=== PATIENT | female | born 1950 | race Caucasian/White ===

== ENCOUNTER 2019-05-29 09:40 | Emergency (ER) | payer OTHER ==
[~2019-05-29] VITALS: Ht 165.1 cm; Wt 61.2 kg
[~2019-05-29 09:40] MED LIST: CLON1TAB PO; EZET1TAB24 PO; LORA10TA60 PO; METO25TA14 PO; OMEP20EC9 PO; PANT20EC12 PO; TRAM50TA1 PO
--- NOTE | 2019-05-29 09:51 | NUR ---
PT AMBULATED TO BED 11, RN EVALUATING AT BEDSIDE.
[2019-05-29 09:55] VITALS: BP 130/71
--- NOTE | 2019-05-29 10:00 | NUR ---
PT PRESENTS TO ED REQUESTING REFILL OF HOME MED METOPROLOL 25 MG PO BID FOR HTN. DENIES PAIN OR DISCOMFORT AT THIS TIME. AMB EVEN STEADY GAIT. VSS. HX- HTN RX- METOPROLOL
--- NOTE | 2019-05-29 10:25 | NUR ---
Patient discharged with v/s stable. Written and verbal after care instructions given and explained. Patient alert, oriented and verbalized understanding of instructions. Ambulatory with steady gait. All questions addressed prior to discharge BY DR. MENDEZ AND PT D/C BY DR. MENDEZ. ID band removed. Patient advised to follow up with PMD. Rx of METOPROLOL given. Patient educated on indication of medication including possible reaction and side effects. Opportunity to ask questions provided and answered.
== END 2019-05-29 10:25 | disposition home or self-care (01) ==
LOC: MED 09:40
DX: Z76.0 Encounter for issue of repeat prescription (principal); J45.909 Unspecified asthma, uncomplicated; E11.9 Type 2 diabetes mellitus without complications; I10 Essential (primary) hypertension; F03.90 Unspecified dementia, unspecified severity, without behavioral disturbance, psychotic disturbance, mood disturbance, and anxiety; Z79.899 Other long term (current) drug therapy
CPT/HCPCS: 99283

== ENCOUNTER 2019-06-04 10:35 | Emergency (ER) | payer OTHER | END 2019-06-04 12:12 | disposition home or self-care (01) | LOC: MED 10:35 | DX: R00.2 Palpitations (principal); F41.9 Anxiety disorder, unspecified; I10 Essential (primary) hypertension; Z90.49 Acquired absence of other specified parts of digestive tract | CPT/HCPCS: 99283 ==

== ENCOUNTER 2019-06-13 18:49 | Emergency (ER) | payer OTHER ==
[~2019-06-13] VITALS: Ht 165.1 cm; Wt 68.0 kg
[2019-06-13 19:03] VITALS: BP 185/92
--- NOTE | 2019-06-13 19:22 | NUR ---
68 Y/O FEMALE BIBA FROM HOME. PT PRESENTS TO ED, C/O CHOKING APPROXIMATELY 1 HOUR AGO. PT WAS AT HOME EATING BREAD AND STARTED CHOKING. PT LUNG SOUNDS BILAT CLEAR. NO SOB/DIFFICULTY BREATHING NOTED. DENIES ANY CHEST PAIN. PT STATES BEING UNABLE TO SWALLOW SALIVA. PT VSS. ERMD AWARE. WILL CONTINUE TO MONITOR.
--- NOTE | 2019-06-13 19:32 | NUR ---
PATIENT LEFT WITHOUT BEING SEEN BY DR. MENDEZ. NO FURTHER CARE PROVIDED FOR PATIENT.
--- NOTE | 2019-06-13 19:33 | NUR ---
PT LEFT WITHOUT BEING SEEN.
--- NOTE | 2019-06-13 19:45 | NUR ---
PT RETURNED FROM LOBBY. REQUESTED TO BE SEEN BY DOCTOR AGAIN.
--- NOTE | 2019-06-13 20:10 | NUR ---
PT TAKEN TO CT
[2019-06-13] MEDS ORDERED: NITROGLYCERIN 0.4 MG TAB SL ONE (22:00)
[2019-06-13] MEDS ORDERED: GLUCAGON 1 MG VIAL IVP ONE (22:00)
[2019-06-13 22:35] VITALS: BP 125/58
[2019-06-13] MEDS ORDERED: GLUCAGON 1 MG VIAL ONE (22:58)
--- NOTE | 2019-06-13 23:18 | NUR ---
PT DISCHARGED BY DR MENDEZ. PAPERWORK PROVIDED. EDUCATED PT REGARDING D/C DIAGNOSIS AND INSTRUCTIONS. TOLD PT TO FOLLOW UP WITH PCP AND WHEN TO RETURN TO ED. PT AT STABLE CONDITION. ALL QUESTIONS ANSWERED.
== END 2019-06-13 23:18 | disposition home or self-care (01) ==
LOC: MED 18:49
DX: T18.198A Other foreign object in esophagus causing other injury, initial encounter (principal); J45.909 Unspecified asthma, uncomplicated; E11.9 Type 2 diabetes mellitus without complications; I10 Essential (primary) hypertension; F03.90 Unspecified dementia, unspecified severity, without behavioral disturbance, psychotic disturbance, mood disturbance, and anxiety; Z79.899 Other long term (current) drug therapy; Z79.891 Long term (current) use of opiate analgesic; Z91.09 Other allergy status, other than to drugs and biological substances; Z91.048 Other nonmedicinal substance allergy status; Y92.89 Other specified places as the place of occurrence of the external cause
CPT/HCPCS: 70490; 96374; 99291; J1610; 99284

== ENCOUNTER 2019-08-10 20:55 | Emergency (ER) | payer OTHER ==
[~2019-08-10] VITALS: Ht 167.6 cm; Wt 68.0 kg
[2019-08-10 20:55] VITALS: BP 178/50
--- NOTE | 2019-08-10 21:00 | NUR ---
PT BIBA TO BED 04.
--- NOTE | 2019-08-10 21:25 | NUR ---
68 Y/O F PRESENTS TO ED WITH C/O SOB AND CHEST PAIN . [place]ET[place]ESE SPEAKING ONLY, DAUGHTER AT BEDSIDE TO TRANSLATE AND GIVE REPORT. [employer]. PT's DAUGHTER REPORTS THAT PATIENT TOOK MEDICATIONS FOR ANXIETY AND MEDICATIONS FOR BP-METROPOLOL. CONNECTED TO FITTING ROOM OPERATOR, SINUS AMANDA ON MONITOR, HR-48, BP-158/56, 98% ON ROOM AIR, RR-14, LUNG SOUNDS CLEAR. SIDERAILS UPx3, BED LOCKED AND IN LOWEST POSITION, WILL CARRY OUT ORDERS.
[2019-08-10 22:47] LABS: BASOPHILS % (AUTO) 0.7 % (0.0-2.0); EOSINOPHILS # (AUTO) 0.1 K/uL (0-0.4); EOSINOPHILS % (AUTO) 2.5 % (0.0-4.0); HEMATOCRIT 42.3 % (36-48); HEMOGLOBIN 14.1 g/dL (12.0-16.0); LYMPHOCYTES % (AUTO) 36.6 % (20.5-51.1); MEAN CORPUSCULAR HEMOGLOBIN 32 pg (27-31); MEAN CORPUSCULAR HGB CONC 34 g/dL (33-37); MEAN CORPUSCULAR VOLUME 96.5 fL (80-94); MONOCYTES # (AUTO) 0.4 K/uL (0.8-1.0); MONOCYTES % (AUTO) 6.9 % (1.7-9.3); NEUTROPHILS # (AUTO) 2.9 K/uL (1.8-7.7); NEUTROPHILS % (AUTO) 53.3 % (42.2-75.2); PLATELET COUNT (AUTO) 180 K/uL (140-450); RED BLOOD CELL COUNT(AUTO) 4.38 MIL/uL (4.20-5.40); RED CELL DISTRIBUTION WIDTH 13.5 % (11.6-13.7); WHITE BLOOD COUNT (AUTO) 5.3 K/uL (4.8-10.8)
--- NOTE | 2019-08-10 23:10 | NUR ---
DAUGHTER REQUESTING TO CALL FOR PATIENT UPDATE OR IF GETTING ADMITTED [phone] [place]
[2019-08-10 23:14] LABS: ALBUMIN 3.7 g/dL (3.4-5.0); ANION GAP 7.8 (8-16); CARBON DIOXIDE 34.2 mmol/L (21-32); CREATININE 0.6 mg/dL (0.6-1.3); TOTAL BILIRUBIN 0.4 mg/dL (0.0-1.0)
[2019-08-11 00:40] VITALS: BP 140/50
--- NOTE | 2019-08-11 00:40 | NUR ---
PATIENT RESTING WELL IN BED, EYES CLOSED, VISIBLE CHEST RISE AND FALL. CONNECTED TO TELE MONITOR, HEART RATE SINUS AMANDA TO SINUS RHYTHM. SAFETY PRECAUTIONS IN PLACE. WILL CONTINUE TO MONITOR.
--- NOTE | 2019-08-11 00:55 | NUR ---
Patient discharged with v/s stable. Written and verbal after care instructions given and explained. Patient verbalized understanding. Ambulatory with steady gait. All questions addressed prior to discharge. Advised to follow up with PMD. CALL MADE TO DAUGHTER-[place] TO MUSIC JOURNALIST PATIENT. DAUGHTER WILL ARRIVE IN 5 MINUTES.
== END 2019-08-11 00:53 | disposition home or self-care (01) ==
LOC: MED 20:55
DX: R07.9 Chest pain, unspecified (principal); R53.1 Weakness; J45.909 Unspecified asthma, uncomplicated; E11.9 Type 2 diabetes mellitus without complications; F03.90 Unspecified dementia, unspecified severity, without behavioral disturbance, psychotic disturbance, mood disturbance, and anxiety; I10 Essential (primary) hypertension; Z79.899 Other long term (current) drug therapy; Z79.84 Long term (current) use of oral hypoglycemic drugs; Z90.710 Acquired absence of both cervix and uterus
CPT/HCPCS: 36415; 71045; 80053; 84484; 85025; 93005; 99285; Q0092

== ENCOUNTER 2023-07-11 09:10 | Day surgery (SDC) | payer OTHER ==
[~2023-07-11] VITALS: Ht 165.1 cm; Wt 66.2 kg
[~2023-07-11 09:10] MED LIST changes: +AMLO5TAB PO; +APIX5TAB PO; +ASPI-1749 PO; -EZET1TAB24 PO; +LORA-476 PO; +LOSA-272 PO; +LOSA100T52 PO; +METO25TA PO; +OMEP40EC23 PO; -PANT20EC12 PO; +PANT20EC18 PO; +SERT50TA PO; +SIMV-372 PO; +TRAM-748 PO; -TRAM50TA1 PO; +[UNRECOGNIZED DRUG - CODE] PO
[2023-07-11 10:10] LABS: BASOPHILS % (AUTO) 0.7 % (0.0-2.0); EOSINOPHILS % (AUTO) 0.5 % (0.0-4.0); HEMATOCRIT 39.8 % (36-48); HEMOGLOBIN 13.3 g/dL (12.0-16.0); LYMPHOCYTES # (AUTO) 1.1 K/uL (2.5-16.5); LYMPHOCYTES % (AUTO) 21.4 % (20.5-51.1); MEAN CORPUSCULAR HEMOGLOBIN 29 pg (27-31); MEAN CORPUSCULAR HGB CONC 33 g/dL (33-37); MEAN CORPUSCULAR VOLUME 87.4 fL (80-94); MONOCYTES # (AUTO) 0.3 K/uL (0.8-1.0); MONOCYTES % (AUTO) 6.5 % (1.7-9.3); NEUTROPHILS # (AUTO) 3.8 K/uL (1.8-7.7); NEUTROPHILS % (AUTO) 70.9 % (42.2-75.2); PLATELET COUNT (AUTO) 238 K/uL (140-450); RED BLOOD CELL COUNT(AUTO) 4.56 MIL/uL (4.20-5.40); RED CELL DISTRIBUTION WIDTH 15.2 % (11.6-13.7); WHITE BLOOD COUNT (AUTO) 5.4 K/uL (4.8-10.8)
[2023-07-11 10:22] LABS: ALANINE AMINOTRANSFERASE 27 U/L (12-78); ALBUMIN 3.3 g/dL (3.4-5.0); ALKALINE PHOSPHATASE 82 U/L (50-136); ANION GAP 6.6 (8-16); ASPARTATE AMINOTRANSFERASE 29 U/L (15-37); CALCIUM 8.7 mg/dL (8.5-10.1); CARBON DIOXIDE 33.5 mmol/L (21-32); CHLORIDE 97 mmol/L (98-107); CREATININE 0.8 mg/dL (0.6-1.3); GLUCOSE 80 mg/dL (74-106); POTASSIUM 3.1 mmol/L (3.5-5.1); SODIUM SERUM 134 mmol/L (136-145); TOTAL BILIRUBIN 0.7 mg/dL (0.0-1.0); TOTAL PROTEIN, SERUM 7.8 g/dL (6.4-8.2); UREA NITROGEN, BLOOD 9 mg/dL (7-18)
[2023-07-11] MEDS ORDERED: PROPOFOL 200 MG/20 ML VIAL IV ONE ×2 (11:36→12:30)
[2023-07-11] MEDS ORDERED: MIDAZOLAM 2 MG/2 ML VIAL ONE (11:36)
[2023-07-11] MEDS ORDERED: LIDOCAINE 2% 100 MG/5 ML SYR IVP ONE (12:54)
== END 2023-07-11 14:40 | disposition home or self-care (01) ==
LOC: MDS 09:10 → MMU 09:12 → MDS 14:40
PROVIDERS: ATTEND Internal Medicine Gastroenterology
DX: R14.0 Abdominal distension (gaseous) (principal); K21.9 Gastro-esophageal reflux disease without esophagitis; I10 Essential (primary) hypertension; F41.9 Anxiety disorder, unspecified; J45.909 Unspecified asthma, uncomplicated; K62.5 Hemorrhage of anus and rectum
CPT/HCPCS: 36415; 45378; 71045; 80053; 85025; 93005; J2001; J2250; J2704

== ENCOUNTER 2024-03-29 00:15 | Inpatient (IN) | payer OTHER ==
[~2024-03-29] VITALS: Ht 162.6 cm; Wt 64.4 kg
[~2024-03-29 00:15] MED LIST changes: -APIX5TAB PO; -ASPI-1749 PO; -CLON1TAB PO; -LORA10TA60 PO; -LOSA-272 PO; -METO25TA PO; -OMEP20EC9 PO; -PANT20EC18 PO; -SERT50TA PO; -TRAM-748 PO
[2024-03-29 00:20] VITALS: BP 175/61; PULSE 50; RESP 16; TEMP 98; O2SAT 100
[2024-03-29 00:44] LABS: BASOPHILS # (AUTO) 0.1 K/uL (0.00-0.22); BASOPHILS % (AUTO) 0.9 % (0.0-2.0); EOSINOPHILS % (AUTO) 0.7 % (0.0-4.0); HEMOGLOBIN 12.1 g/dL (12.0-16.0); LYMPHOCYTES # (AUTO) 1.7 K/uL (2.5-16.5); LYMPHOCYTES % (AUTO) 28.2 % (20.5-51.1); MEAN CORPUSCULAR HEMOGLOBIN 27 pg (27-31); MEAN CORPUSCULAR HGB CONC 33 g/dL (33-37); MEAN CORPUSCULAR VOLUME 81.6 fL (80-94); MONOCYTES # (AUTO) 0.6 K/uL (0.8-1.0); MONOCYTES % (AUTO) 10.5 % (1.7-9.3); NEUTROPHILS # (AUTO) 3.7 K/uL (1.8-7.7); NEUTROPHILS % (AUTO) 59.7 % (42.2-75.2); PLATELET COUNT (AUTO) 233 K/uL (140-450); RED BLOOD CELL COUNT(AUTO) 4.54 MIL/uL (4.20-5.40); WHITE BLOOD COUNT (AUTO) 6.2 K/uL (4.8-10.8)
[2024-03-29 00:58] LABS: ANION GAP 10.2 (8-16); CALCIUM 8.8 mg/dL (8.5-10.1); CARBON DIOXIDE 31.3 mmol/L (21-32); CHLORIDE 93 mmol/L (98-107); CREATININE 1.1 mg/dL (0.6-1.3); GLUCOSE 97 mg/dL (74-106); POTASSIUM 3.5 mmol/L (3.5-5.1); SODIUM SERUM 131 mmol/L (136-145); UREA NITROGEN, BLOOD 22 mg/dL (7-18)
[2024-03-29 01:10] LABS: ALANINE AMINOTRANSFERASE 59 U/L (12-78); ALBUMIN 3.8 g/dL (3.4-5.0); ALKALINE PHOSPHATASE 98 U/L (50-136); ASPARTATE AMINOTRANSFERASE 49 U/L (15-37); TOTAL BILIRUBIN 0.5 mg/dL (0.0-1.0); TOTAL PROTEIN, SERUM 7.2 g/dL (6.4-8.2)
[2024-03-29] MEDS ORDERED: LORazepam 1 MG TAB PO PRN (03:30)
[2024-03-29] MEDS ORDERED: ONDANSETRON 4 MG/2 ML VIAL IVP PRN (03:35)
[2024-03-29] MEDS: NITROGLYCERIN 0.4 MG TAB SL ONE (03:52)
[2024-03-29 07:04] LABS: BASOPHILS # (AUTO) 0.1 K/uL (0.00-0.22); BASOPHILS % (AUTO) 0.9 % (0.0-2.0); EOSINOPHILS % (AUTO) 0.4 % (0.0-4.0); HEMATOCRIT 39.2 % (36-48); HEMOGLOBIN 12.8 g/dL (12.0-16.0); LYMPHOCYTES # (AUTO) 1.2 K/uL (2.5-16.5); LYMPHOCYTES % (AUTO) 20.9 % (20.5-51.1); MEAN CORPUSCULAR HEMOGLOBIN 26 pg (27-31); MEAN CORPUSCULAR HGB CONC 33 g/dL (33-37); MEAN CORPUSCULAR VOLUME 80.4 fL (80-94); MONOCYTES # (AUTO) 0.4 K/uL (0.8-1.0); MONOCYTES % (AUTO) 7.5 % (1.7-9.3); NEUTROPHILS % (AUTO) 70.3 % (42.2-75.2); PLATELET COUNT (AUTO) 258 K/uL (140-450); RED BLOOD CELL COUNT(AUTO) 4.88 MIL/uL (4.20-5.40); RED CELL DISTRIBUTION WIDTH 17.8 % (11.6-13.7); WHITE BLOOD COUNT (AUTO) 5.7 K/uL (4.8-10.8)
[2024-03-29 07:27] LABS: ANION GAP 12.3 (8-16); CARBON DIOXIDE 30.9 mmol/L (21-32); CHLORIDE 94 mmol/L (98-107); GLUCOSE 92 mg/dL (74-106); POTASSIUM 3.2 mmol/L (3.5-5.1); SODIUM SERUM 134 mmol/L (136-145); UREA NITROGEN, BLOOD 18 mg/dL (7-18)
[2024-03-29 07:35] VITALS: O2SAT 96
[2024-03-29] MEDS: MORPHINE SULFATE 2 MG/ML SYR IVP PRN (07:48)
[2024-03-29 08:00] VITALS: PULSE 45; RESP 18; O2SAT 98
[2024-03-29] MEDS: amLODIPine 5 MG TAB PO SCH (08:29)
[2024-03-29] MEDS: LOSARTAN 50 MG TAB PO SCH (08:29)
[2024-03-29] MEDS: ASPIRIN 81 MG TAB.CHEW PO SCH (08:30)
[2024-03-29] MEDS: PANTOPRAZOLE 40 MG TABEC PO SCH (08:30)
[2024-03-29] MEDS: POTASSIUM CHLORIDE 10 MEQ TABER PO PRN (10:14)
[2024-03-29] MEDS ORDERED: DEXTROSE 50% 50 ML SYR IVP PRN (10:55)
[2024-03-29 12:00] VITALS: BP 137/52; PULSE 47; RESP 18; TEMP 97.6; O2SAT 97
[2024-03-29] MEDS: BLOOD GLUCOSE MONITORING 1 DEV DEV FS SCH (12:24)
[2024-03-29] MEDS: INSULIN LISPRO SLIDING SCALE 100 UNITS/ML VIAL SUBQ PRN (12:28)
[2024-03-29] MEDS ORDERED: APIX2.5 PO (16:25)
[2024-03-29 16:56] VITALS: BP 131/64; PULSE 51; RESP 18; TEMP 98.2
[2024-03-29] MEDS ORDERED: EZETIMIBE PO SCH (21:00)
[2024-03-29] MEDS ORDERED: APIXABAN 2.5 MG TAB PO SCH (21:00)
[2024-03-29] MEDS ORDERED: SIMVASTATIN PO SCH (21:00)
[2024-03-29] MEDS ORDERED: SIMVASTATIN 20 MG TAB PO SCH (21:00)
[2024-03-29] MEDS ORDERED: EZETIMIBE 10 MG TAB PO SCH (21:00)
[2024-03-30] MEDS ORDERED: NAPROXEN 500 MG TAB PO SCH (09:00)
[2024-03-30] MEDS ORDERED: PANTOPRAZOLE 40 MG TABEC PO SCH (09:00)
== END 2024-03-29 17:20 | disposition home or self-care (01) | DRG 206 ==
LOC: MED 00:15 → MTU 03:41
PROVIDERS: ADMIT Student in an Organized Health Care Education/Training Program; ATTEND Student in an Organized Health Care Education/Training Program
DX: M94.0 Chondrocostal junction syndrome [Tietze] (principal); I48.0 Paroxysmal atrial fibrillation; I11.0 Hypertensive heart disease with heart failure; R73.03 Prediabetes; R00.1 Bradycardia, unspecified; I50.9 Heart failure, unspecified; J44.9 Chronic obstructive pulmonary disease, unspecified; F41.9 Anxiety disorder, unspecified; E78.5 Hyperlipidemia, unspecified; Z79.899 Other long term (current) drug therapy; Z88.8 Allergy status to other drugs, medicaments and biological substances
CPT/HCPCS: 36415; 71045; 80048; 80053; 82948; 83735; 83880; 84100; 84484; 85025; 87081; 93005; 96374; 99285; J1815; J2270; Q0092